=== PATIENT | male | born 1960 | race Caucasian/White ===

== ENCOUNTER 2019-12-25 19:07 | Observation (INO) | payer MEDICARE ==
[~2019-12-25] VITALS: Ht 177.8 cm; Wt 78.6 kg
[~2019-12-25 19:07] MED LIST: AMOXICILLIN500 MG PO; BACTRIM DS 8001 TA1 PO; CIPRO500 MG PO; HYDROCODONE BIT1 T11 PO; TRAMADOL HCL50 MG PO; TRIMOX500 MG PO; ULTRAM50 MG PO; VICODIN 500 MG-1 TAB PO; VICODIN ES 7501 TAB PO; ZOLOFT25 MG PO
[2019-12-25 19:14] VITALS: BP 149/83
[2019-12-25 20:12] LABS: BASO # 0.1 10*3/uL (0.0-0.1); BASO % 0.3 % (0.0-1.0); EOS % 0.2 % (1.0-4.0); HEMATOCRIT 45.6 % (42.0-52.0); LYMPH # 2.2 10*3/uL (1.3-4.4); LYMPH % 13.8 % (27.0-41.0); MEAN CELL VOLUME 94.2 fl (80.0-94.0); MEAN PLATELET VOLUME 9.6 fl (9.6-12.3); MONO # 1.3 10*3/uL (0.1-1.0); MONO % 8.4 % (3.0-9.0); NEUT # 12.1 10*3/uL (2.3-7.9); NEUT % 76.6 % (47.0-73.0); PLATELET COUNT AUTOMATED 305 10*3/uL (130-400); RED BLOOD COUNT 4.84 10*6/uL (4.50-5.90); RED CELL DISTRI WIDTH 13.2 % (0-14.5); WHITE BLOOD COUNT 15.7 10*3/uL (4.8-10.8)
[2019-12-25 20:23] LABS: ACT PARTIAL THROMBO TIME 31.9 SECONDS (20.0-32.1)
[2019-12-25 20:27] LABS: ALBUMIN 3.9 gm/dl (3.1-4.5); ALKALINE PHOSPHATASE 71 U/L (45-117); BUN 10 mg/dl (7-24); CHLORIDE 100 mmol/L (98-107); CREATININE 0.92 mg/dL (0.70-1.30); POTASSIUM 3.6 mmol/L (3.5-5.1); SGOT/AST 32 IU/L (3-35); SGPT/ALT 26 U/L (12-78); SODIUM 131 mmol/L (136-145); TOTAL PROTEIN 6.8 gm/dL (6.4-8.2)
[2019-12-25 21:44] LABS: BILIRUBIN NEGATIVE (NEGATIVE); BLOOD NEGATIVE (NEGATIVE); CLARITY CLEAR (CLEAR); COLOR YELLOW (YELLOW); GLUCOSE NEGATIVE (NEGATIVE); KETONE NEGATIVE (NEGATIVE); LEUKO ESTERASE NEGATIVE (NEGATIVE); NITRITE NEGATIVE (NEGATIVE); SPECIFIC GRAVITY 1.015 (1.005-1.030); UROBILINOGEN 0.2 E.U./dl (0.2-1.0)
[2019-12-25 21:48] LABS: URINE AMPHETAMINES < 1000 (1000ng/ml); URINE BARBITURATES < 200 (200ng/ml); URINE BENZODIAZEPINES < 200 (200ng/ml); URINE CANNABINOIDS (THC) > 50 (50ng/ml); URINE COCAINE < 300 (300ng/ml); URINE METHADONE < 300 (300ng/ml); URINE OPIATES < 300 (300ng/ml)
[2019-12-25 21:51] LABS: URINE PHENCYCLIDINE < 25 (25ng/ml)
[2019-12-25 21:58] LABS: BACTERIA TRACE; EPITHELIAL CELLS 0-2; MUCOUS TRACE; RBC 0-2 rbc/hpf (0-2); WBC 0-2 wbc/hpf (0-5)
[2019-12-26 02:12] VITALS: BP 127/77
[2019-12-26 02:35] VITALS: BP 156/81
[2019-12-26 05:57] LABS: BASO % 0.2 % (0.0-1.0); EOS # 0.1 10*3/uL (0.0-0.4); EOS % 0.9 % (1.0-4.0); HEMATOCRIT 47.1 % (42.0-52.0); LYMPH # 2.2 10*3/uL (1.3-4.4); LYMPH % 18.6 % (27.0-41.0); MEAN CELL VOLUME 95.2 fl (80.0-94.0); MEAN CORPUSCULAR HGB 31.5 pg (27.0-31.0); MEAN CORPUSCULAR HGB CONC 33.1 g/dl (33.0-37.0); MEAN PLATELET VOLUME 10.2 fl (9.6-12.3); MONO # 1.1 10*3/uL (0.1-1.0); MONO % 9.6 % (3.0-9.0); NEUT # 8.3 10*3/uL (2.3-7.9); NEUT % 70.3 % (47.0-73.0); PLATELET COUNT AUTOMATED 287 10*3/uL (130-400); RED BLOOD COUNT 4.95 10*6/uL (4.50-5.90); RED CELL DISTRI WIDTH 13.2 % (0-14.5); WHITE BLOOD COUNT 11.9 10*3/uL (4.8-10.8)
[2019-12-26 06:08] LABS: ALBUMIN 3.8 gm/dl (3.1-4.5); ALKALINE PHOSPHATASE 77 U/L (45-117); BUN 9 mg/dl (7-24); CHLORIDE 107 mmol/L (98-107); CHOLESTEROL 245 mg/dL (<200); CREATININE 0.93 mg/dL (0.70-1.30); HDL CHOLESTEROL 45 mg/dl (40-60); LDL CHOLESTEROL 145 mg/dL (9-159); POTASSIUM 3.8 mmol/L (3.5-5.1); SGOT/AST 34 IU/L (3-35); SGPT/ALT 26 U/L (12-78); SODIUM 137 mmol/L (136-145); TOTAL PROTEIN 6.8 gm/dL (6.4-8.2); TRIGLYCERIDES 273 mg/dl (<150); VLDL CHOLESTEROL 55 mg/dL (6-40)
[2019-12-26 06:15] LABS: INTERNATIONAL NORM RATIO 0.9 (2.0-3.5)
[2019-12-26 08:00] VITALS: BP 130/78
[2019-12-26 12:00] VITALS: BP 127/76
[2019-12-26 16:00] VITALS: BP 132/75
[2019-12-26 20:00] VITALS: BP 147/96
[2019-12-27] VITALS: BP 150/89
[2019-12-27 06:30] LABS: BASO % 0.4 % (0.0-1.0); EOS # 0.1 10*3/uL (0.0-0.4); EOS % 1.1 % (1.0-4.0); HEMATOCRIT 49.6 % (42.0-52.0); LYMPH # 2.9 10*3/uL (1.3-4.4); LYMPH % 25.2 % (27.0-41.0); MEAN CELL VOLUME 96.5 fl (80.0-94.0); MEAN CORPUSCULAR HGB 31.3 pg (27.0-31.0); MEAN CORPUSCULAR HGB CONC 32.5 g/dl (33.0-37.0); MEAN PLATELET VOLUME 10.4 fl (9.6-12.3); MONO # 0.9 10*3/uL (0.1-1.0); MONO % 8.3 % (3.0-9.0); NEUT # 7.3 10*3/uL (2.3-7.9); NEUT % 64.5 % (47.0-73.0); PLATELET COUNT AUTOMATED 314 10*3/uL (130-400); RED BLOOD COUNT 5.14 10*6/uL (4.50-5.90); RED CELL DISTRI WIDTH 13.1 % (0-14.5); WHITE BLOOD COUNT 11.3 10*3/uL (4.8-10.8)
[2019-12-27 06:50] LABS: BUN 10 mg/dl (7-24); CHLORIDE 104 mmol/L (98-107); CREATININE 0.94 mg/dL (0.70-1.30); POTASSIUM 3.7 mmol/L (3.5-5.1); SODIUM 137 mmol/L (136-145)
[2019-12-27 08:00] VITALS: BP 152/88
[2019-12-27] MEDS ORDERED: HYDROCODONE-AC1 EAC1 PO (11:03)
== END 2019-12-27 12:04 | disposition home or self-care (01) ==
LOC: ED 19:07 → EDHOLD 12-26 01:43 → 5E 12-26 01:43
PROVIDERS: Emergency Medicine; Hospitalist; Student in an Organized Health Care Education/Training Program; ADMIT Internal Medicine
DX: S22.49XA Multiple fractures of ribs, unspecified side, initial encounter for closed fracture (principal); J93.9 Pneumothorax, unspecified; S27.329A Contusion of lung, unspecified, initial encounter; S02.2XXA Fracture of nasal bones, initial encounter for closed fracture; S00.83XA Contusion of other part of head, initial encounter; R91.1 Solitary pulmonary nodule; D72.829 Elevated white blood cell count, unspecified; E87.1 Hypo-osmolality and hyponatremia; R73.9 Hyperglycemia, unspecified; E78.5 Hyperlipidemia, unspecified; E83.51 Hypocalcemia; Z79.899 Other long term (current) drug therapy; F10.929 Alcohol use, unspecified with intoxication, unspecified; F12.10 Cannabis abuse, uncomplicated; F17.200 Nicotine dependence, unspecified, uncomplicated; M19.90 Unspecified osteoarthritis, unspecified site; I73.9 Peripheral vascular disease, unspecified; J94.2 Hemothorax; E83.41 Hypermagnesemia; Y04.0XXA Assault by unarmed brawl or fight, initial encounter; Y93.89 Activity, other specified; Y92.89 Other specified places as the place of occurrence of the external cause; Y99.8 Other external cause status

== ENCOUNTER → 2020-07-23 | Outpatient (CLI) | payer MEDICARE ==
[~2020-07-23] MED LIST changes: +HYDROCODONE-AC1 EAC1 PO; +IBUPROFEN600 MG PO
== END | disposition home or self-care (01) ==
LOC: CT 10:49
PROVIDERS: ATTEND Internal Medicine Critical Care Medicine
DX: J43.9 Emphysema, unspecified (principal); R91.1 Solitary pulmonary nodule

== ENCOUNTER 2020-08-31 11:00 | Emergency (ER) | payer MEDICARE ==
[~2020-08-31] VITALS: Ht 157.4 cm; Wt 80.7 kg
[~2020-08-31 11:00] MED LIST changes: -IBUPROFEN600 MG PO
[2020-08-31] MEDS ORDERED: IBUPROFEN600 MG PO (14:12)
== END 2020-08-31 14:25 | disposition home or self-care (01) ==
LOC: ED 11:00
DX: S63.502A Unspecified sprain of left wrist, initial encounter (principal); F17.200 Nicotine dependence, unspecified, uncomplicated; Z98.890 Other specified postprocedural states; X58.XXXA Exposure to other specified factors, initial encounter; Y93.89 Activity, other specified; Y92.89 Other specified places as the place of occurrence of the external cause; Y99.8 Other external cause status